=== PATIENT | female | born 1995 | race American Indian/Alaskan Native ===

== ENCOUNTER 2016-11-13 04:56 | Emergency (ER) | payer OTHER ==
--- NOTE | 2016-11-13 07:37 | XRay Report ---
Right wrist: No fracture nor displacement. No obvious swelling. Well-mineralized bony structures and preserved cartilaginous spaces. Small navicular cyst. Impression: No acute findings or significant pathology identified.
--- NOTE | 2016-11-13 07:39 | XRay Report ---
Cervical spine: Pain. The vertebral height, alignment, and interspaces are preserved. The bones are well-mineralized. No swelling noted. Focal calcification of the anterior longitudinal ligament at C6. Impression: No acute findings and no significant pathology identified.
--- NOTE | 2016-11-13 07:39 | XRay Report ---
LEFT KNEE: Pain. The bony architecture is intact without evidence of fracture or dislocation. No significant soft tissue abnormality is seen. IMPRESSION: Normal left knee.
[2016-11-13] MEDS ORDERED: MOTRIN PO ONE (11:09)
[2016-11-13] MEDS ORDERED: FLEXERIL PO ONE (11:09)
[2016-11-13] MEDS ORDERED: BOOSTRIX IM ONE (11:12)
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
--- NOTE | 2016-11-13 11:58 | XRay Report ---
THORACIC SPINE: Trauma, pain. The bones are normally mineralized with well preserved vertebral height, alignment and interspace distances. No paraspinal soft tissue widening is noted. IMPRESSION: Normal study. AP AND LATERAL LUMBOSACRAL SPINE: Trauma, pain. The vertebral bodies are well mineralized and normal in alignment and vertebral height. The interspace distances are unremarkable and frontal projection due to angulation somewhat limited evaluation in lateral projection. The visualized portions of the posterior elements are normal. IMPRESSION: Limited normal exam.
[2016-11-13 13:07] VITALS: BP 111/68
== END 2016-11-13 13:07 | disposition home or self-care (01) ==
LOC: ED 04:56
DX: S80.212A Abrasion, left knee, initial encounter (principal); M54.6 Pain in thoracic spine; M54.5 Low back pain; M25.531 Pain in right wrist; W19.XXXA Unspecified fall, initial encounter; Y93.89 Activity, other specified; Y99.9 Unspecified external cause status; Y92.89 Other specified places as the place of occurrence of the external cause
CPT/HCPCS: 36415; 72040; 72070; 72100; 84703; 90471; 90715